=== PATIENT | female | born 1940 | race Caucasian/White ===

== ENCOUNTER 2019-07-19 07:34 | Inpatient (IN) | payer MEDICARE ==
[~2019-07-19] VITALS: Ht 162.6 cm; Wt 63.5 kg
[2019-07-19] MEDS ORDERED: DONEPEZIL HCL10 MG PO (09:40)
[2019-07-19] MEDS ORDERED: NAMENDA5 MG PO (09:40)
[2019-07-19] MEDS ORDERED: VITAMIN D31000 UNI2 PO (09:41)
[2019-07-19] MEDS ORDERED: CALCIUM 500 +1 EAC3 PO (09:41)
[2019-07-19] MEDS ORDERED: MULTI-DAY VITAM1 TAB PO (09:42)
[2019-07-19] MEDS ORDERED: FERROUS SULFAT325 MG PO (09:42)
[2019-07-19 10:42] LABS: BASOPHILS 0.4 % (0-2); EOSINOPHILS 2.6 % (0-7); HEMATOCRIT 37.4 % (36.0-48.0); HEMOGLOBIN 12.2 g/dL (12-16); IMMATURE GRANULOCYTES 0.2 % (0-5); LYMPHOCYTES 24.2 % (15-50); MCH 28.4 pg (26.0-34.0); MCHC 32.6 g/dL (31.0-37.0); MEAN PLATELET VOLUME 8.7 fL (7.4-10.4); MONOCYTES 8.9 % (2-11); NEUTROPHILS 63.7 % (40-80); PLATELET COUNT 222 10x3/uL (130-400); RDW 17.8 % (11.5-14.5); WBC 4.9 10x3/uL (4.8-10.8)
[2019-07-19 10:50] LABS: ANION GAP 9.1 mmol/L (8-16); CALCIUM 8.9 mg/dL (8.5-10.1); CARBON DIOXIDE 33.2 mmol/L (21.0-32.0); CREATININE - SERUM 0.8 mg/dL (0.6-1.3); POTASSIUM - SERUM 3.3 mmol/L (3.5-5.1)
[2019-07-19 11:09] LABS: APTT 39.3 SECONDS (22.8-39.4); INR 1.09 (0.85-1.17); PROTIME 13.6 SECONDS (11.6-15.0)
[2019-07-19] MEDS ORDERED: CLARITIN 10 MG10 MG PO (11:31)
[2019-07-20 07:32] VITALS: BP 128/73; BMI 24.2
--- NOTE | 2019-07-20 10:42 | NUR ---
OK TO D/C PT WITH BP OF 162/90 PER ANESTHESIA
[2019-07-20 11:02] VITALS: BP 161/82
--- NOTE | 2019-07-20 11:15 | NUR ---
ASSESSMENT PER FLOW SHEET. PT ARRIVED TO ROOM 2228 FROM PACU VIA STRETCHER. FAMILY IS AT BEDSIDE.MONITOR FOR NEEDS.
[2019-07-20 15:22] VITALS: BP 161/82; BMI 24.0
[2019-07-20 16:37] VITALS: BP 146/85
--- NOTE | 2019-07-20 19:25 | NUR ---
A&O X 4, DAUGHTER AT BEDSIDE. SOME CONFUSION NOTED, BUT EASILY REORIENTED. 3 INCISION SITES TO ABDOMEN, DRESSING C/D/I. SMALL SCABBED SORE WITH SURROUNDING REDNESS TO LOWER ABDOMEN, PT STATES IT HAS BEEN FORMING OVER THE PAST 2-3 WEEKS. DENIES PAIN. INSTRUCTED TO MOVE AROUND AND DRINK LOTS OF FLUIDS TO ENCOURAGE BM. DENIES FURTHER NEEDS AT THIS TIME.
[2019-07-20 20:18] VITALS: BP 152/96
[2019-07-21 00:44] VITALS: BP 122/75
--- NOTE | 2019-07-21 02:36 | NUR ---
I have reviewed this patient and I concur with the Shift Assessment completed by the Licensed Practical Nurse today this shift.
[2019-07-21 04:43] VITALS: BP 116/50
[2019-07-21 05:20] LABS: CALC OSMOLALITY 275 mosm/kg (275-300); CALCIUM 8.2 mg/dL (8.5-10.1); CARBON DIOXIDE 30.4 mmol/L (21.0-32.0); CHLORIDE - SERUM 102 mmol/L (98-107); CREATININE - SERUM 0.7 mg/dL (0.6-1.3); GLUCOSE 120 mg/dL (74-106); POTASSIUM - SERUM 3.7 mmol/L (3.5-5.1); SODIUM 138 mmol/L (136-145); UREA NITROGEN 11 mg/dL (7-18); eGFR NON AFRICAN AMERICAN 86 mL/min (90-120)
[2019-07-21 05:34] LABS: BASOPHILS 0.3 % (0-2); EOSINOPHILS 0.4 % (0-7); IMMATURE GRANULOCYTES 0.2 % (0-5); LYMPHOCYTES 9.2 % (15-50); MCH 27.8 pg (26.0-34.0); MEAN PLATELET VOLUME 9.2 fL (7.4-10.4); MONOCYTES 11.7 % (2-11); NEUTROPHILS 78.2 % (40-80); PLATELET COUNT 223 10x3/uL (130-400); RBC 3.45 10x6/uL (4.00-5.40); RDW 16.9 % (11.5-14.5)
[2019-07-21 05:42] LABS: HEMATOCRIT 29.1 % (36.0-48.0); HEMOGLOBIN 9.6 g/dL (12-16); MCV 84.3 fL (80.0-100.0); WBC 9.2 10x3/uL (4.8-10.8)
--- NOTE | 2019-07-21 07:35 | NUR ---
PATIENT LYING IN BED STATES SHE HAS STILL NOT HAD A BM THIS MORNING EVEN WITH ALL REGIMINS GIVEN LAST NIGHT. PATIENT HAS BEEN NPO ALL NIGHT. CONTINUE WITH PLAN O FCARE. NO S/S OF DISTRESS, NO PAIN PER PATIENT. CL IN ERACH BED IN LOW POSITION.
[2019-07-21 08:46] VITALS: BP 117/56
--- NOTE | 2019-07-21 12:27 | NUR ---
Patient has been on toilet since coming back from Xray, pt has also been nauseous, patient is able to use restroom and consinues to use restroom. Has refused go lytely at this time. will continue with plan of care
[2019-07-21 12:49] VITALS: Ht 162.6 cm; Wt 63.5 kg
--- NOTE | 2019-07-21 14:27 | NUR ---
PATIENT FAMILY CONCERNED THAT PATIENT GETS CONFUSED AFTER PUSHING PAIN BUTTON REQUESTED TYLENOL PAGED DR CAMP FOR ORDER
--- NOTE | 2019-07-21 14:30 | MORECARE ---
CASE MANAGEMENT DISCHARGE SUMMARY PATIENT: NANCI LOUISE UNIT: [id number] ADM DATE: 07/20/19 AGE: 79 : 42 SEX: F ROOM/BED: D.2228 AUTHOR: BEVERLY PIMENTEL PHYSICIAN: REFERRING PHYSICIAN: HERBERT CAMP MD DATE OF SERVICE: 07/21/19 Discharge Plan Patient Name: NANCI LOUISE Facility: [facility]:[place] : 1940 Planned Disposition: Home Anticipated Discharge Date: Discharge Date: Expected LOS: Initial Reviewer: [email or web address] Initial Review Date: 07/21/2019 Generated: 07/21/19 3:30 pm Comments DCP- Discharge Planning Updated by [email or web address]: Corinne Mckenzie on 07/21/19 1:[address] Patient Name: NANCI LOUISE Admission Status: Elective Accout number: [id number] Admission Date: 07-20-2019 : 1940 Admission Diagnosis: Attending: HERBERT CAMP Current LOS: 1 Anticipated DC Date: Planned Disposition: Home Primary Insurance: MEDICARE A & B Discharge Planning Comments: CM met with patient and her daughter Zen at bedside after explaining CM role and obtaining verbal consent. CM discussed availability / needs of home health and medical equipment. Daughter states she lives with her and helps care for her, states mostly independant. Is not interested in any services at this time. CM to follow and assist. Machine Tool Technology Instructor: Corinne Mckenzie DCPIA - Discharge Planning Initial Assessment Updated by [id number]: Corinne Mckenzie on 07/21/19 2:24 pm * Is the patient Alert and Oriented? No * PCP STEPHON * Pharmacy [facility] * Preadmission Environment Home with Family * ADLs Independent * Equipment None * List name and contact numbers for known caregivers / representatives who currently or will assist patient after discharge: ZEN, DAUGHTER, * Community resources currently utilized None * Additional services required to return to the preadmission environment? No * Can the patient safely return to the preadmission environment? Yes * Has this patient been hospitalized within the prior 30 days at any hospital? No Patient Name: NANCI LOUISE Page [id number] at 1430 All edits/amendments must be made on the electronic document DICTATION DATE: 07/21/19 143 RODENT EXTERMINATOR: JOE 07/21/19 1430 RPT#: [id number] DC DATE: STATUS: ADM IN [facility] [address] [place] [address] END OF REPORT
--- NOTE | 2019-07-21 14:57 | NUR ---
I have reviewed this patient and I concur with the Shift Assessment completed by the Licensed Practical Nurse today this shift.
[2019-07-21 16:51] VITALS: BP 110/55
--- NOTE | 2019-07-21 19:30 | NUR ---
PATIENT WONDERING AROUND ROOM, SEEMS VERY CONFUSED. HELPED PATIENT TO THE BATHROOM AND WAITED UNTIL FINISHED TO HELP HER CHANGE AND INTO BED. CALL LIGHT AND TABLE IN REACH.
[2019-07-21 21:52] VITALS: BP 118/71
[2019-07-22] VITALS (10 sets, daily range): BP systolic 119–160; BP diastolic 57–76
--- NOTE | 2019-07-22 08:00 | NUR ---
PATIENT TO SURGERY
--- NOTE | 2019-07-22 11:15 | NUR ---
PATIENT BACK FROM SURGERY WITH IV AND LANIER INTACT. VS STABLE. PATIENT FLUIDS INFUSING. FAMILY AT SIDE. CALLL IGHT WITHIN REACH.
--- NOTE | 2019-07-22 11:29 | NUR ---
BULL LADLE TENDER STARTED FOR PAIN AT THIS TIME. RIGHT AC IV BLOWN. RESTARTED X 1 STICK IN RIGHT ARM. PATIENT TOLERATED WITH SMALL AMOUNT OF PAIN. EXPLAINED BULL LADLE TENDER TO PATIENT. VERBALIZED UNDERSTANDING. BA PLACED ON. BSCDS ON AND WORKING. INCISIONS TO ABD. CDI. CALL LIGHT WITHIN REACH.
--- NOTE | 2019-07-22 12:30 | NUR ---
PATIENT AWAKE, VS STABLE. TRYING TO PULL ON LANIER. EXPLAINED TO PATIENT THAT SHE CANT PULL IT OUT BECAUSE IT HAS A BALLOON FULL IN HER BLADDER AND THAT IF SHE NEEDS TO VOID URINE IS ALREADY COMING OUT INTO THE BAG. PATIENT CONFUSED. BA ON. CALLL HELLENChris GALLO.
--- NOTE | 2019-07-22 13:23 | OP ---
PATIENT NAME: NANCI LOUISE MEDICAL RECORD: [id number] :44 LOCATION:D.MS [id number] ADMISSION DATE:07/20/19 SURGEON: JAIME CAMP MD DATE OF OPERATION: 07/20/2019 PREOPERATIVE DIAGNOSES: 1. Transverse colon cancer. 2. Dementia. POSTOPERATIVE DIAGNOSES: 1. Transverse colon cancer. 2. Dementia. PROCEDURE: Hand-assisted exploratory laparotomy with lysis of adhesions. SURGEON: Jaime Camp MD REPORT OF PROCEDURE: The patient's abdomen was prepped and draped in sterile fashion. A cutdown was made in the midline around the umbilicus and electrocautery was used to dissect through the subcutaneous tissues into the abdominal cavity. Once in the abdomen, we were able to place the Gelport with a 5-mm trocar within it. After we insufflated the abdomen, a 5-mm trocar was placed in the epigastrium and another one was placed in the left upper quadrant. The patient had some adhesions in the right upper quadrant from previous right hemicolectomy. These adhesions were taken down with electrocautery and we were able to free up all the adhesions in the bowel on this side. The adhesions were mainly of the omentum to the anterior abdominal wall, but there was some of the small bowel to the abdominal wall. Once these were all taken down, we were able to flip the omentum over and inspect the patient's colon. At this point, we noted that the patient's colon was full of stool. As I continued my palpation of the colon around past the splenic flexure and down the descending colon, there were large chunks of stool present throughout the colon. At this point, I elected not to continue any further with the surgery as this may require the patient to have a colostomy. We did not see any evidence of any metastatic disease present in the abdomen and at this point, the ports and insufflation were then removed. The midline fascia was closed with running #1 looped PDS and the skin was closed with dee. COMPLICATIONS: None. CONDITION: Stable. ANESTHESIA: General endotracheal. BLOOD LOSS: Minimal. TRANSINT:[id number] Voice Confirmation ID: [id number] DOCUMENT ID: [id number] OPERATIVE REPORT [id number] NANCI LOUISE JAIME CAMP MD at 1323 CC: KAMAR GUDINO and CATRACHITA PADRON MD [id number] DICTATION DATE: 07/20/19 0958 PHOTOGRAPHIC PRINTER: 07/20/19 1055 ADM IN [place] [id number] [place] [id number]
--- NOTE | 2019-07-22 14:50 | NUR ---
PATIENT IN BED WITH EYES CLOSED RESTING QUIETLY. IV INTACT. LANIER INTACT. CALL LIGHT WITHIN REACH.
--- NOTE | 2019-07-22 16:30 | NUR ---
PATIENT IN BED WITH EYES CLOSED RESTING QUIETLY. IV INTACT. NO COMPLAINTS. CALLL IGHT WITHIN REACH.
--- NOTE | 2019-07-22 18:00 | NUR ---
PATIENT PULLED IV OUT AT THIS TIME WITH CATH TIP INTACT.
--- NOTE | 2019-07-22 18:30 | NUR ---
PATIENT PULLED LANIER OUT AT THIS TIME.
--- NOTE | 2019-07-22 18:54 | NUR ---
PATIENT TRYING TO GET OUT OF BED. PULLED IV AND LANIER OUT. STATES SHE WANTS TO PEE. IT OPERATIONS MANAGER AT BEDSIDE. CALL LIGHT WITHIN REACH.
--- NOTE | 2019-07-22 19:30 | NUR ---
NOTIFIED DR. CAMP ABOUT CATH. STATED OK TO LEAVE OUT. PATIENT IN BED WITH EYES CLOSED RESTING QUIETLY. CALL LIGHT WITHIN REACH.
--- NOTE | 2019-07-22 20:00 | NUR ---
WAS TOLD IN REPORT THAT PT PULLED OUT LANIER AND IV. NOTIFIED MD AND WAS TOLD LANIER DOESN'T NEED TO BE REPLACED. IV RESITED TO THE LT UPPER ARM WITH, FLUSHES WITH EASE. ALERT BUT DISORIENTED TO PLACE, TIME, SITUATION. MIDLINE INCISION WITH THREE LAP SITES TO THE ABDOMEN, CDI. YAIR ALARM ON WITH DAUGHTER AT THE BEDSIDE. NO OTHER NEEDS AT THIS TIME. CONTINUE WITH PLAN OF CARE.
--- NOTE | 2019-07-22 20:15 | NUR ---
REASSES BP OF 152/78. WILL CONTINUE TO MONITOR.
[2019-07-23 01:31] VITALS: BP 147/68
[2019-07-23 05:54] VITALS: BP 149/82
[2019-07-23 06:47] LABS: BASOPHILS 0.1 % (0-2); EOSINOPHILS 0 % (0-7); HEMATOCRIT 27.2 % (36.0-48.0); HEMOGLOBIN 8.7 g/dL (12-16); IMMATURE GRANULOCYTES 0.5 % (0-5); LYMPHOCYTES 7.5 % (15-50); MCH 28.2 pg (26.0-34.0); MCV 88.3 fL (80.0-100.0); MEAN PLATELET VOLUME 9.5 fL (7.4-10.4); MONOCYTES 12.8 % (2-11); NEUTROPHILS 79.1 % (40-80); PLATELET COUNT 265 10x3/uL (130-400); RBC 3.08 10x6/uL (4.00-5.40); RDW 18.3 % (11.5-14.5)
[2019-07-23 07:00] LABS: CALC OSMOLALITY 294 mosm/kg (275-300); CALCIUM 7.8 mg/dL (8.5-10.1); CARBON DIOXIDE 31.7 mmol/L (21.0-32.0); CHLORIDE - SERUM 111 mmol/L (98-107); CREATININE - SERUM 0.6 mg/dL (0.6-1.3); GLUCOSE 116 mg/dL (74-106); POTASSIUM - SERUM 3.2 mmol/L (3.5-5.1); SODIUM 147 mmol/L (136-145); UREA NITROGEN 19 mg/dL (7-18); eGFR NON AFRICAN AMERICAN > 90 mL/min (90-120)
[2019-07-23 09:28] VITALS: BP 164/80
[2019-07-23 12:32] VITALS: BP 149/77
--- NOTE | 2019-07-23 13:36 | NUR ---
Nutrition follow-up: Pt s/p HALS trans-colectomy today Clear liquids to start tomorrow if no N/V Labs reviewed WT: 140# RDN following.
[2019-07-23 16:52] VITALS: BP 125/63
[2019-07-23 20:10] VITALS: BP 128/68
--- NOTE | 2019-07-23 22:18 | NUR ---
PT HAS BEEN RESTING QUIETLY EYES CLOSED. ABDOMINAL DRESSINGS C/D/I. COMPLETE ASSESSMENT PER FLOW-SHEET. NO OTHER NEEDS. BED LOW, ALARM ON. WILL CONTINUE TO MONITOR.
[2019-07-24 01:22] VITALS: BP 128/68; BP 138/66
[2019-07-24 04:59] VITALS: BP 134/60
[2019-07-24 05:52] LABS: CALC OSMOLALITY 291 mosm/kg (275-300); CALCIUM 7.4 mg/dL (8.5-10.1); CHLORIDE - SERUM 111 mmol/L (98-107); CREATININE - SERUM 0.5 mg/dL (0.6-1.3); GLUCOSE 109 mg/dL (74-106); POTASSIUM - SERUM 3.8 mmol/L (3.5-5.1); SODIUM 145 mmol/L (136-145); UREA NITROGEN 18 mg/dL (7-18); eGFR NON AFRICAN AMERICAN > 90 mL/min (90-120)
[2019-07-24 05:58] LABS: BASOPHILS 0.3 % (0-2); HEMATOCRIT 22.8 % (36.0-48.0); IMMATURE GRANULOCYTES 0.4 % (0-5); LYMPHOCYTES 14.4 % (15-50); MCHC 31.6 g/dL (31.0-37.0); MCV 88.7 fL (80.0-100.0); MEAN PLATELET VOLUME 9.1 fL (7.4-10.4); MONOCYTES 11.3 % (2-11); NEUTROPHILS 69.6 % (40-80); RBC 2.57 10x6/uL (4.00-5.40); RDW 17.7 % (11.5-14.5)
[2019-07-24 06:11] LABS: WBC 7.2 10x3/uL (4.8-10.8)
[2019-07-24 06:13] LABS: HEMOGLOBIN 7.2 g/dL (12-16); PLATELET COUNT 207 10x3/uL (130-400)
--- NOTE | 2019-07-24 06:20 | NUR ---
CALLED DR. TSEVENS ABOUT CRITICAL HGB 7.2 - ORDERED TO 2 UNITS PRBC'S TO BE INFUSED. PLACED ORDER TO BLOOD BANK.
--- NOTE | 2019-07-24 10:21 | NUR ---
PT ALERT TO SELF, DISORIENTED TO PLACE, TIME AND SITUATION. BREATH SOUNDS CLEAR BILAT. PT REPORTING PAIN OF 8/10 TO ABDOMEN, TECHNOLOGY SALES REPRESENTATIVE IN PLACE WILL MONITOR. STARTING FIRST UNIT OF PRBC. PT SITTING UP IN CHAIR. BED LOW, CALL LIGHT IN REACH. NO OTHER NEEDS AT THIS TIME.
[2019-07-24 12:30] VITALS: BP 135/85
--- NOTE | 2019-07-24 18:20 | NUR ---
PT PULLED PIV OUT OF RIGHT HAND WITH CATHETER TIP INTACT. DRESSING APPLIED TO PIV SITE. PT STATES "IT WAS BOTHERING ME". WILL NOTIFY SHIFT NURSE.
[2019-07-24 20:40] VITALS: BP 151/76
[2019-07-25 05:18] VITALS: BP 158/85
[2019-07-25 06:22] LABS: BASOPHILS 0.3 % (0-2); EOSINOPHILS 5.2 % (0-7); IMMATURE GRANULOCYTES 0.6 % (0-5); LYMPHOCYTES 11.5 % (15-50); MCH 28.6 pg (26.0-34.0); MCHC 33.4 g/dL (31.0-37.0); MEAN PLATELET VOLUME 9.7 fL (7.4-10.4); MONOCYTES 11.1 % (2-11); NEUTROPHILS 71.3 % (40-80); PLATELET COUNT 225 10x3/uL (130-400); RDW 17.2 % (11.5-14.5); WBC 7.1 10x3/uL (4.8-10.8)
[2019-07-25 06:32] LABS: HEMATOCRIT 33.5 % (36.0-48.0); HEMOGLOBIN 11.2 g/dL (12-16); MCV 85.5 fL (80.0-100.0); RBC 3.92 10x6/uL (4.00-5.40)
[2019-07-25 07:00] LABS: CALC OSMOLALITY 282 mosm/kg (275-300); CALCIUM 8.1 mg/dL (8.5-10.1); CARBON DIOXIDE 30.6 mmol/L (21.0-32.0); CHLORIDE - SERUM 108 mmol/L (98-107); CREATININE - SERUM 0.5 mg/dL (0.6-1.3); GLUCOSE 88 mg/dL (74-106); POTASSIUM - SERUM 3.7 mmol/L (3.5-5.1); SODIUM 143 mmol/L (136-145); UREA NITROGEN 9 mg/dL (7-18); eGFR NON AFRICAN AMERICAN > 90 mL/min (90-120)
[2019-07-25 08:38] VITALS: BP 158/76
--- NOTE | 2019-07-25 09:17 | NUR ---
PT ALERT TO SELF ONLY. BREATH SOUNDS CLEAR BILAT. IV TO LEFT WRIST, PATENT, DRESSING CDI. PT REPORTING NO PAIN AT THIS TIME. PT SITTING ON SIDE OF BED EATING BREAKFAST. BED LOW, CALL LIGHT IN REACH. NO OTHER NEEDS AT THIS TIME.
[2019-07-25 12:40] VITALS: BP 160/83
[2019-07-25 17:20] VITALS: BP 132/73
[2019-07-25 20:00] VITALS: BP 153/81
[2019-07-26 04:00] VITALS: BP 154/66
--- NOTE | 2019-07-26 04:24 | NUR ---
Pt pulled out IV x 2 this shift resited frist to left FR, Is now in right FA. resting in bed at this time with no needs.
[2019-07-26 05:14] LABS: BASOPHILS 0.3 % (0-2); EOSINOPHILS 4.1 % (0-7); HEMATOCRIT 31.7 % (36.0-48.0); HEMOGLOBIN 10.5 g/dL (12-16); IMMATURE GRANULOCYTES 0.8 % (0-5); MCH 28.5 pg (26.0-34.0); MCHC 33.1 g/dL (31.0-37.0); MCV 85.9 fL (80.0-100.0); MONOCYTES 12.1 % (2-11); NEUTROPHILS 68.7 % (40-80); PLATELET COUNT 180 10x3/uL (130-400); RBC 3.69 10x6/uL (4.00-5.40); WBC 7.3 10x3/uL (4.8-10.8)
[2019-07-26 05:17] LABS: CALC OSMOLALITY 279 mosm/kg (275-300); CALCIUM 8.1 mg/dL (8.5-10.1); CARBON DIOXIDE 25.3 mmol/L (21.0-32.0); CHLORIDE - SERUM 108 mmol/L (98-107); CREATININE - SERUM 0.6 mg/dL (0.6-1.3); GLUCOSE 94 mg/dL (74-106); POTASSIUM - SERUM 3.7 mmol/L (3.5-5.1); SODIUM 141 mmol/L (136-145); UREA NITROGEN 9 mg/dL (7-18); eGFR NON AFRICAN AMERICAN > 90 mL/min (90-120)
--- NOTE | 2019-07-26 07:30 | NUR ---
PATIENT BS REPORT RECIEVED. ASSISTED PATIENT TO BR. IV INTACT. NO COMPLAINTS. INCISIONS TO ABDOMEN WITH CECELIA CDI. BED ALARM ON. CALL LIGHT WITHIN REACH.
[2019-07-26] MEDS ORDERED: HYDROCODON-ACE1 EAC7 PO (08:38)
[2019-07-26 08:52] VITALS: BP 148/77
--- NOTE | 2019-07-26 10:30 | NUR ---
PATIENT IN BED WITH IV INTACT. NO COMPLAINTS OR SIGNS OF DISTRESS. FAMILY AT BEDSIDE.
[2019-07-26 12:03] VITALS: BP 135/76
--- NOTE | 2019-07-26 13:00 | NUR ---
DISCHARGE INSTRUCTIONS GIVEN TO PATIENT AND DAUGHTER. IV REMOVED WITH CATH INTACT. GAVE DAUGHTER NORCO PRESCRITION. NO QUESTIONS AT THIS TIME. AWAITING WC TO BE TRANSFERRED DOWN TO PRIVATE VEHICLE. CALL LIGHT WITHIN REACH.
--- NOTE | 2019-07-26 16:55 | MORECARE ---
CASE MANAGEMENT DISCHARGE SUMMARY PATIENT: NANCI LOUISE UNIT: [id number] ADM DATE: 07/20/19 AGE: 79 : 44 SEX: F ROOM/BED: D.2228 AUTHOR: LORENDOC PHYSICIAN: REFERRING PHYSICIAN: HERBERT CAMP MD DATE OF SERVICE: 07/26/19 Discharge Plan Patient Name: NANCI LOUISE Facility: [facility]:[place] : 1940 Planned Disposition: Home Anticipated Discharge Date: Discharge Date: 07/26/2019 Expected LOS: Initial Reviewer: [email or web address] Initial Review Date: 07/21/2019 Generated: 07/26/19 5:55 pm DCP- Discharge Planning Updated by [email or web address]: Corinne Mckenzie on 07/21/19 1:[address] Patient Name: NANCI LOUISE Admission Status: Elective Accout number: [id number] Admission Date: 07-20-2019 : 1940 Admission Diagnosis: Attending: HERBERT CAMP Current LOS: 1 Anticipated DC Date: Planned Disposition: Home Primary Insurance: MEDICARE A & B Discharge Planning Comments: CM met with patient and her daughter Zen at bedside after explaining CM role and obtaining verbal consent. CM discussed availability / needs of home health and medical equipment. Daughter states she lives with her and helps care for her, states mostly independant. Is not interested in any services at this time. CM to follow and assist. Abrasive Water Jet Cutter Operator: Corinne Mckenzie DCPIA - Discharge Planning Initial Assessment Updated by [email or web address]: Corinne Mckenzie on 07/21/19 2:24 pm * Is the patient Alert and Oriented? No * PCP STEPHON * Pharmacy [facility] * Preadmission Environment Home with Family * ADLs Independent * Equipment None * List name and contact numbers for known caregivers / representatives who currently or will assist patient after discharge: ZEN, DAUGHTER, * Community resources currently utilized None * Additional services required to return to the preadmission environment? No * Can the patient safely return to the preadmission environment? Yes * Has this patient been hospitalized within the prior 30 days at any hospital? No Coverage Notice Reviewer: [email or web address] - Corinne Mckenzie Notice Issued Date-Time: 07/26/2019 11:56 Notice Type: IM Appeals Notice Notice Delivered To: Patient Relationship to Patient: Theatrical Performer Name: Delivery Method: HAND - Hand Delivered Gabby Days: Prior Verbal Notification: Recipient Understood Notice: Yes Recipient Signature: Yes Med Rec Note Co-signed by Attending: Coverage Notice Comment: Last DP export: 07/21/19 1:30 p Patient Name: NANCI LOUISE Page 79515 at 1655 All edits/amendments must be made on the electronic document DICTATION DATE: 07/26/191654 ARCHITECT: JOE 07/26/191654 RPT#: [id number] DC DATE:07/26/19 STATUS: DIS IN [facility] [address] [place] [address] END OF REPORT
--- NOTE | 2019-07-30 11:37 | OP ---
PATIENT NAME: NANCI LOUISE MEDICAL RECORD: [id number] :44 LOCATION:D.MS [id number] ADMISSION DATE:07/20/19 SURGEON: JAIME CAMP MD DATE OF OPERATION: 07/22/2019 PREOPERATIVE DIAGNOSES: 1. Malignancy of the transverse colon. 2. Dementia. 3. Acute blood loss anemia. POSTOPERATIVE DIAGNOSES: 1. Malignancy of the transverse colon. 2. Dementia. 3. Acute blood loss anemia. PROCEDURES: 1. Hand-assisted laparoscopic transverse colectomy. 2. Mobilization of the splenic flexure. SURGEON: Jaime Camp MD REPORT OF PROCEDURE: The patient's abdomen was prepped and draped in sterile fashion. The patient had incisions in the midline around the umbilicus and two 5-mm trocar site incisions in the epigastrium and left upper quadrant. The dee were removed from these incision sites and we bluntly opened up the incisions. The sutures in the midline that were closing the fascia were removed and we entered the abdominal cavity. Once inside, we placed the Gelport and was able to eviscerate some of the bowel out and could feel that the bowel was clean this time and the prep had worked appropriately. We then reinsufflated the abdomen and placed the 5-mm trocars back into the abdominal cavity. The patient had some adhesions in the right upper quadrant from her previous right hemicolectomy. These adhesions were taken down using electrocautery and at this point, we were able to mobilize the ileocolonic anastomosis medially. We then placed another 5-mm trocar in the right upper quadrant and mobilized the splenic flexure using electrocautery. The splenic flexure had a large amount of omentum present near it. This was taken down using electrocautery and we were eventually able to mobilize this portion of the splenic flexure and the proximal left colon medially by taking down the white line of Toldt. The bowel was then eviscerated through the wound protector. We transected the small bowel just proximal to the splenic flexure using a 75 blue load FAISAL stapler. The mass was easily palpable within the specimen. We then took down the mesentery using sequential clamp and tie technique. We also took down the omentum and tried to preserve as much of it as possible. We eventually were able to get the bowel completely out with the omentum and marked it appropriately before sending it off for permanent specimen. The mesentery was inspected. There was no sign of any bleeding. We then performed a [id number] anastomosis of the ileum to the distal transverse colon using a 75 blue load FAISAL stapler by making small enterotomies in the bowel. The enterotomies were then closed with a 30 blue load TA stapler and we oversewed the staple lines using lemberted 3-0 silks. We placed this back into the abdominal cavity and then placed the omentum over top of the anastomosis. We then reinspected the abdominal cavity and irrigated out thoroughly with normal saline. We could see some bleeding coming from the left upper quadrant and as we inspected closely, there was a small tear to the patient's spleen on this most inferior pole. Pressure was applied to the area, which significantly slowed down the bleeding and then we applied a piece of OPERATIVE REPORT [id number] NANCI LOUISE. I did not see any evidence of any further significant bleeding. We then irrigated out the abdomen and inspected the other 4 quadrants and pelvis and saw no signs of any bleeding. At this point, the ports and insufflation were then removed. The midline fascia was closed with #1 looped PDS times 2. The subcutaneous tissues were reapproximated with interrupted 3-0 Vicryl, and the skin incisions were all closed with dee. COMPLICATIONS: None. CONDITION: Stable. ANESTHESIA: General endotracheal. BLOOD LOSS: 100 mL. TRANSINT:[id number] Voice Confirmation ID: [id number] DOCUMENT ID: [id number] cc: Dr. Jenn Arias, [phone] JAIME CAMP MD at 1137 CC: Ag GUDINO DR. ASMA [id number] DICTATION DATE: 07/22/19 1035 POWER LINE LINEMAN: 07/23/19 0101 DIS IN 07/26/19 [facility] [address] [place] [address]
== END 2019-07-26 14:46 | disposition home or self-care (01) | DRG 330 ==
LOC: D.SDCHOLD 07-20 06:15 → D.MS 07-20 06:15 → D.SDCHOLD 07-20 08:15 → D.MS 07-20 10:12
PROVIDERS: Anesthesiology; ADMIT Surgery; ATTEND Surgery
PROC: 0DNU0ZZ Release Omentum, Open Approach (ICD-10-PCS; 2019-07-20)
PROC: 0DTL0ZZ Resection of Transverse Colon, Open Approach (ICD-10-PCS; principal; 2019-07-22 08:00)
DX: C18.4 Malignant neoplasm of transverse colon (principal); D62 Acute posthemorrhagic anemia; F03.90 Unspecified dementia, unspecified severity, without behavioral disturbance, psychotic disturbance, mood disturbance, and anxiety; M19.90 Unspecified osteoarthritis, unspecified site